=== PATIENT | male | born 1975 ===

== ENCOUNTER 2018-05-30 04:41 | Emergency (ER) | payer SELFPAY ==
[~2018-05-30] VITALS: Ht 180.3 cm; Wt 105.0 kg
[2018-05-30 04:43] VITALS: BP 153/108
--- NOTE | 2018-05-30 05:20 | NUR ---
TECH AT BS TO CUT RING OFF. DR. WYMAN UPDATED THAT PT IS REPORTING "BROKEN TOE" TO RIGHT 2ND TOE.
[2018-05-30] MEDS ORDERED: CEFAZOLIN 1,000 MG ONE (05:24)
[2018-05-30] MEDS ORDERED: CEFAZOLIN 1,000 MG IM ONE (05:30)
--- NOTE | 2018-05-30 05:36 | NUR ---
TECH'S REMAIN AT BS TO CUT RING OFF. PT. GIVEN WATER AFTER OK FROM DR. WYMAN.
[2018-05-30] MEDS ORDERED: IBUPROFEN 800 MG TABLET ONE (05:40)
[2018-05-30] MEDS ORDERED: LIDOCAINE-MPF 1%, 5ML ONE (05:41)
--- NOTE | 2018-05-30 05:55 | NUR ---
PT. WAS REFUSING TECH'S TO CONTINUE TO TO ATTEMPT TO GET RING OFF "UNTIL I GET SOME PAIN MEDS". IBUPROFEN 800MG TAB PO ADMIN PER DR. WYMAN VERBAL ORDER AND ROBYN GREENBERG IN TO DO A BLOCK TO FINGER. TECH'S BACK AT BS TO REMOVE RING.
[2018-05-30] MEDS ORDERED: LIDOCAINE-MPF 1%, 5ML INFIL ONE (06:00)
[2018-05-30] MEDS ORDERED: IBUPROFEN 200 MG TABLET PO ONE (06:00)
--- NOTE | 2018-05-30 06:04 | NUR ---
DURING REMOVAL OF RING PT WOULD NOT SIT STILL. WHEN RING WAS CUSTODIAL CUT OFF PT STOOD UP AND SAID "I AM LEAVING". PT CONTINUED TO CURSE AT STAFF. PT GOT UP PUT ON HIS CLOTHES AND LEFT AMA
--- NOTE | 2018-05-30 06:07 | NUR ---
DR. WYMAN REPORTED TO THIS RN THAT PT. LEFT BECAUSE HE WAS UPSET ABOUT RING BEING REMOVED. PT. WAS A&O X 4 AND ABLE TO MAKE DECISIONS FOR SELF. PT. AMBULATED WITH STEADY GAIT.
== END 2018-05-30 06:12 | disposition left against medical advice (07) ==
LOC: ED 06:06
DX: L03.011 Cellulitis of right finger (principal)
CPT/HCPCS: 99283